=== PATIENT | male | born 1975 | race Two or more races ===

== ENCOUNTER 2017-05-03 01:37 | Emergency (ER) | payer OTHER ==
[~2017-05-03] VITALS: Ht 180.3 cm; Wt 117.9 kg
--- NOTE | 2017-05-03 02:29 | NUR ---
Patient discharged to home in stable conditon. Written and verbal after care instructions given. Patient verbalizes understanding of instructions.
== END 2017-05-03 02:31 | disposition home or self-care (01) ==
LOC: ER 01:42
DX: S92.911A Unspecified fracture of right toe(s), initial encounter for closed fracture (principal); W22.8XXA Striking against or struck by other objects, initial encounter; Y93.89 Activity, other specified; Y92.9 Unspecified place or not applicable; Y99.9 Unspecified external cause status
CPT/HCPCS: 73630; 99284; A4663